=== PATIENT | male | born 1975 | race Caucasian/White ===

== ENCOUNTER 2020-05-08 10:00 | Outpatient (CLI) | payer OTHER, SELFPAY ==
--- NOTE | ~2020-05-08 | XR_ITS ---
XR lumbar spine 2-3V DATE: 05/08/2020 10:42 INDICATION: Left-sided low back pain. No injury. TECHNIQUE: AP, lateral, coned lateral lumbosacral views COMPARISON: None FINDINGS: There is suggestion of bilateral L5 pars interarticularis defects with associated grade 1 a nterolisthesis at L5-S1. There is mild to moderate anterior wedging and loss of height of L1 which appears chronic, most consi stent with old healed anterior wedge compression fracture. No recent fracture or bone destruction is evident. The lumbar pedicles appear intact. Lumbar and lumb osacral interspaces appear well preserved. The sacroiliac joints are normal. Incidentally noted is a prominent amount of fecal material in the colon suggesting constipation. 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 IMPRESSION: Bilateral L5 spondylolysis is strongly suggested, with associated g rade 1 anterolisthesis at L5-S1 Mild to moderate old anterior wedge compression fracture deformity of L1
[2020-05-08 10:47] LABS: Hematocrit 45.5 % (42.0-52.0); Hemoglobin 15.9 g/dL (14.0-18.0); Mean Corpuscular HGB Conc 34.9 g/dl (32-36); Mean Corpuscular Hemoglobin 31.2 pg (26-34); Mean Corpuscular Volume 89.4 fl (80-100); Mean Platelet Volume 9.4 fl (7.4-10.4); Platelet Count Result 212 k/mm3 (150-375); Red Blood Count 5.09 M/mm3 (4.6-6.20); Red Cell Distribution Width 12.9 % (11.5-14.5); White Blood Count 7.3 K/mm3 (4.5-10.0)
[2020-05-08 10:56] LABS: Blood Urea Nitrogen 12 mg/dL (9-20); Calcium 9.4 mg/dL (8.4-10.2); Carbon Dioxide 25 mmol/L (22-30); Chloride 108 mmol/L (98-107); Estimated Glomerular Filt Rate > 60; Glucose 124 mg/dL (75-110); Potassium 4.8 mmol/L (3.4-5.0); Sodium 139 mmol/L (137-145)
== END 2020-05-08 10:01 | disposition home or self-care (01) ==
PROVIDERS: PCP Family Medicine; Visit Provider Nurse Practitioner Family
DX: M47.896 Other spondylosis, lumbar region (principal); R10.9 Unspecified abdominal pain
CPT/HCPCS: 36415; 72100; 80048; 85027

== ENCOUNTER 2023-01-31 08:00 | Outpatient (CLI) | payer OTHER, SELFPAY ==
[2023-01-31 08:23] LABS: Anion Gap 5 mmol/L (8-16); Blood Urea Nitrogen 12 mg/dL (9-20); Calcium 8.8 mg/dL (8.4-10.2); Carbon Dioxide 29 mmol/L (22-30); Chloride 104 mmol/L (98-107); Cholesterol 166 mg/dL (0-200); Estimated Glomerular Filt Rate > 60; Glucose 117 mg/dL (65-110); HDL Direct 41 mg/dL; Potassium 4.1 mmol/L (3.4-5.0); Sodium 138 mmol/L (137-145); Triglycerides 119 mg/dL (<150)
[2023-01-31 08:34] LABS: LDL Cholesterol Direct 91 mg/dL
[2023-01-31 08:54] LABS: Prostate Specific Antigen 0.7 ng/mL (< OR = 4.0)
== END 2023-01-31 08:01 | disposition home or self-care (01) ==
LOC: ANHLAB 08:02
PROVIDERS: PCP Nurse Practitioner Family; Visit Provider Nurse Practitioner Family
DX: R73.03 Prediabetes (principal); Z13.220 Encounter for screening for lipoid disorders; Z13.29 Encounter for screening for other suspected endocrine disorder; Z12.5 Encounter for screening for malignant neoplasm of prostate
CPT/HCPCS: 36415; 80048; 80061; 84153; 84443

== ENCOUNTER 2023-02-03 06:25 | Day surgery (SDC) | payer OTHER, SELFPAY ==
[2023-01-23 09:02] VITALS: BMI 34.2
[2023-01-28 08:59] VITALS: BMI 36.3
--- NOTE | 2023-02-03 06:45 | PM.HPGS ---
History of Present Illness History of Present Illness Consent: Risks, benefits, and alternatives have been discussed and questions answered. Patient agrees to proceed with procedure. Chief complaint: Family Hx Malignant Neoplasm of digestive organs Narrative: Edgard Armendariz is a 47 year old male referred because of a family history of colon cancer. His last colonoscopy, 8 years ago revealed 3 small polyps that were hyperplastic. Review of Systems Review of Systems: All systems reviewed & are unremarkable except as noted in HPI and below PMFSH Past Medical History Medical History Bipolar affective disorder BMI 34.0-34.9,adult Tobacco use Family History Family History Father Family history of malignant neoplasm Grandparent Diabetes mellitus Mother Thyroid disorder Arthritis Social History Social History Years smoked: 30 Smoking status: Current every day smoker Tobacco type: cigarettes Alcohol intake: never Substance use: current Substance use type: marijuana Other substance usage details: occassional Lack of Transportation: No Lack of Food: Never True Current Housing: I Have Housing Concerned About Future Housing: No Difficulty Paying Gas/Electric Bills: No Difficulty Paying for Meds: No Currently Unemployed: No Education: Grade School Difficulty w/ Childcare or Family Care: No Living arrangements: with family Spiritual care concerns: No Meds Home Medications and Allergies Home Medications Medication Instructions Recorded Confirmed Type benztropine 0.5 mg tablet 0.5 mg PO BID 05/08/20 01/28/23 History mirtazapine 30 mg tablet 30 mg PO DAILY 05/08/20 01/28/23 History quetiapine 400 mg tablet (Seroquel) 400 mg PO BID 05/08/20 01/28/23 History risperidone 2 mg tablet 2 mg PO BID 05/08/20 01/28/23 History fluvoxamine 100 mg tablet 100 mg PO DAILY 01/28/23 01/28/23 History Allergies Allergy/AdvReac Type Severity Reaction Status Date / Time hydrocodone Allergy Unknown Unknown Verified 02/03/23 06:47 risperidone Allergy Unknown Unknown Verified 02/03/23 06:47 codeine AdvReac Severe FEELS LIKE Verified 02/03/23 06:47 SPEED Exam Resp: Auscultation: clear to auscultation bilaterally Cardio: Rate: regular rate Rhythm: regular rhythm GI: GI Palp: Yes Soft to palpation and No Tenderness to palpation present (GI) Assessment and Plan Assessment and plan (1) Screen for colon cancer: Code(s): Z12.11 - Encounter for screening for malignant neoplasm of colon Status: Acute Assessment and Plan: Colonoscopy with possible biopsy or polypectomy or cautery or injection of substances.
--- NOTE | 2023-02-03 06:53 | P.PNAN_ITS ---
Anes - Initial Pre Proc Eval Procedure: Operation Date: 02/03/23 08:00 Proposed Procedures p Diagnostic Colonoscopy - Darwin Chakraborty MD Date/Time: 02/03/23 06:53 Surgeon: Darwin Chakraborty MD Pre Op Diagnosis: Family Hx Malignant Neoplasm of digestive organs Patient Data Age: 47 Gender: M Height: 1.8 m Weight: 109.8 kg Allergies Allergy/AdvReac Type Severity Reaction Status Date / Time hydrocodone Allergy Unknown Unknown Verified 02/03/23 06:47 risperidone Allergy Unknown Unknown Verified 02/03/23 06:47 codeine AdvReac Severe FEELS LIKE Verified 02/03/23 06:47 SPEED Home Medications Medication Instructions Recorded Confirmed Type benztropine 0.5 mg tablet 0.5 mg PO BID 05/08/20 02/03/23 History mirtazapine 30 mg tablet 30 mg PO DAILY 05/08/20 02/03/23 History quetiapine 400 mg tablet (Seroquel) 400 mg PO BID 05/08/20 02/03/23 History risperidone 2 mg tablet 2 mg PO BID 05/08/20 02/03/23 History fluvoxamine 100 mg tablet 100 mg PO DAILY 01/28/23 02/03/23 History Patient hx anesthesia problems: none Family hx anesthesia problems: none Results Review: All pre-operative results and documents have been reviewed as part of the pre- operative evaluation. [facility] Past Medical History Medical History Bipolar affective disorder BMI 34.0-34.9,adult Tobacco use Family History Family History (Updated 01/06/23 @ 09:58 by Celeste Collins MA) Father Family history of malignant neoplasm Grandparent Diabetes mellitus Mother Thyroid disorder Arthritis Social History Social History (Updated 01/06/23 @ 10:00 by Celeste Collins MA) Years smoked: 30 Smoking status: Current every day smoker Tobacco type: cigarettes Alcohol intake: never Substance use: current Substance use type: marijuana Other substance usage details: occassional Lack of Transportation: No Lack of Food: Never True Current Housing: I Have Housing Concerned About Future Housing: No Difficulty Paying Gas/Electric Bills: No Difficulty Paying for Meds: No Currently Unemployed: No Education: Grade School Difficulty w/ Childcare or Family Care: No Living arrangements: with family Spiritual care concerns: No Anes - Eval Final PreProcedure Day of Procedure 04/10/23 06:53 Patient weight: obese Heart: regular rate and rhythm Lungs: clear to auscultation and normal air movement Airway: Mallampati scale class II Neurological: alert and oriented Last oral intake: >/= 8 hours ASA classification: III Emergent: no Anesthetic plan: proceed Anesthesia type and monitoring: general GIVS Results Review: All pre-operative results and documents have been reviewed as part of the pre- operative evaluation. Informed Consent: The patient's anesthetic plan and its attendant risks and benefits were discussed with the patient/family/POA. Questions were solicited and answers provided to the satisfaction of the patient/family/POA.
[2023-02-03 07:07] VITALS: BP 121/77; PULSE 88; RESP 18; TEMP 36.6; O2SAT 96
[2023-02-03] MEDS: LACTATED RINGERS 1,000 ML 150 ML IV CONT (07:07)
[2023-02-03 08:20] VITALS: BP 105/62; PULSE 56; RESP 16; O2SAT 96
[2023-02-03 08:30] VITALS: BP 106/74; PULSE 63; RESP 16; O2SAT 97
[2023-02-03 08:40] VITALS: BP 108/64; PULSE 58; RESP 18; O2SAT 98
--- NOTE | 2023-02-03 08:46 | SUR.PHASEII ---
0825; PT AWAKE AND ALERT. DRINKING SODA. DENIES PAIN OR NAUSEA. MOTHER AT BEDSIDE
--- NOTE | 2023-02-03 12:07 | WPDANESPN ---
Anes - Prog Note Post-Op Date/Time: 02/03/23 12:07 Cardiovascular status: normal Respiratory status: normal Airway patency: baseline Mental status: baseline Post-Op hydration status: normal Vital Signs: Last Vital Signs Temp 36.6 C 02/03/23 07:07 Pulse 58 L 02/03/23 08:40 Resp 18 02/03/23 08:40 BP 108/64 02/03/23 08:40 Pulse Ox 98 02/03/23 08:40 O2 Del Method Room Air 02/03/23 08:40 Pain Score (VAS): 0 I/O: Intake & Output 02/02/23 02/03/23 02/03/23 23:59 07:59 15:59 Intake Total 250 Balance 250 Post-procedural complaints: none Patient Feedback: Patient satisfied with anesthetic care.
== END 2023-02-03 08:49 | disposition home or self-care (01) ==
PROVIDERS: PCP Nurse Practitioner Family; Visit Provider Internal Medicine Gastroenterology
PROC: 0DJD8ZZ Inspection of Lower Intestinal Tract, Via Natural or Artificial Opening Endoscopic (ICD-10-PCS; CPT 45378; principal; 2023-02-03 08:00)
DX: Z12.11 Encounter for screening for malignant neoplasm of colon (principal)
CPT/HCPCS: 45378

== ENCOUNTER 2023-04-28 11:28 | Day surgery (SDC) | payer OTHER, SELFPAY ==
[2023-04-18 10:25] VITALS: BMI 33.8
[2023-04-18 11:38] VITALS: BMI 33.5
--- NOTE | 2023-04-25 16:27 | PM.HPGS ---
History of Present Illness History of Present Illness Consent: Risks, benefits, and alternatives have been discussed and questions answered. Patient agrees to proceed with procedure. Chief complaint: Positive Cologuard Narrative: Edgard Armendariz is a 48 year old male referred for colonoscopy due to a positive Cologuard test. Attempted colonoscopy earlier this year could not be done because of incomplete prep. His father had colon cancer. Review of Systems Review of Systems: All systems reviewed & are unremarkable except as noted in HPI and below PMFSH Past Medical History Medical History Bipolar affective disorder BMI 34.0-34.9,adult Tobacco use Family History Family History Father Family history of malignant neoplasm Grandparent Diabetes mellitus Mother Thyroid disorder Arthritis Social History Social History Smoking packs per day: 1 Smoking cigarettes per day: 20.0 Years smoked: 30 Smoking pack-years: 30.00 Smoking status: Current every day smoker Tobacco type: cigarettes Alcohol intake: never Substance use: current Substance use type: marijuana Other substance usage details: WEEKLY Lack of Transportation: No Lack of Food: Never True Current Housing: I Have Housing Concerned About Future Housing: No Difficulty Paying Gas/Electric Bills: No Difficulty Paying for Meds: No Currently Unemployed: No Education: Grade School Difficulty w/ Childcare or Family Care: No Living arrangements: alone Spiritual care concerns: No Meds Home Medications and Allergies Home Medications Medication Instructions Recorded Confirmed Type benztropine 0.5 mg tablet 0.5 mg PO BID 05/08/20 04/28/23 History mirtazapine 30 mg tablet 30 mg PO DAILY 05/08/20 04/28/23 History quetiapine 400 mg tablet (Seroquel) 400 mg PO BID 05/08/20 04/28/23 History risperidone 2 mg tablet 2 mg PO BID 05/08/20 04/28/23 History fluvoxamine 100 mg tablet 100 mg PO DAILY 01/28/23 04/28/23 History Allergies Allergy/AdvReac Type Severity Reaction Status Date / Time codeine AdvReac Intermediate Hyperactive Verified 04/28/23 11:55 hydrocodone AdvReac Intermediate Hyperactive Verified 04/28/23 11:55 Exam Const: General: alert Nutritional Appearance: overweight Orientation/consciousness: patient oriented x3 Resp: Auscultation: clear to auscultation bilaterally Cardio: Rhythm: regular rhythm GI: GI Palp: Yes Soft to palpation and No Tenderness to palpation present (GI) Neuro: General: patient oriented x3 Assessment and Plan Assessment and plan (1) Screen for colon cancer: Code(s): Z12.11 - Encounter for screening for malignant neoplasm of colon Status: Acute Assessment and Plan: Colonoscopy with possible biopsy or polypectomy or cautery or injection of substances.
--- NOTE | 2023-04-28 10:55 | WPDANESEPPF ---
Anes - Initial Pre Proc Eval Procedure: Operation Date: 04/28/23 13:00 Proposed Procedures p Diagnostic Colonoscopy - Darwin Chakraborty MD Date/Time: 04/28/23 10:55 Surgeon: Darwin Chakraborty MD Pre Op Diagnosis: Positive Cologuard Patient Data Age: 48 Gender: M Height: 1.8 m Weight: 109 kg Allergies Allergy/AdvReac Type Severity Reaction Status Date / Time codeine AdvReac Intermediate Hyperactive Verified 04/28/23 11:55 hydrocodone AdvReac Intermediate Hyperactive Verified 04/28/23 11:55 Home Medications Medication Instructions Recorded Confirmed Type benztropine 0.5 mg tablet 0.5 mg PO BID 05/08/20 04/28/23 History mirtazapine 30 mg tablet 30 mg PO DAILY 05/08/20 04/28/23 History quetiapine 400 mg tablet (Seroquel) 400 mg PO BID 05/08/20 04/28/23 History risperidone 2 mg tablet 2 mg PO BID 05/08/20 04/28/23 History fluvoxamine 100 mg tablet 100 mg PO DAILY 01/28/23 04/28/23 History Patient hx anesthesia problems: none Family hx anesthesia problems: none Results Review: All pre-operative results and documents have been reviewed as part of the pre-operative evaluation. [facility] Past Medical History Medical History Bipolar affective disorder BMI 34.0-34.9,adult Tobacco use Family History Family History Father Family history of malignant neoplasm Grandparent Diabetes mellitus Mother Thyroid disorder Arthritis Social History Social History Smoking packs per day: 1 Smoking cigarettes per day: 20.0 Years smoked: 30 Smoking pack-years: 30.00 Smoking status: Current every day smoker Tobacco type: cigarettes Alcohol intake: never Substance use: current Substance use type: marijuana Other substance usage details: WEEKLY Lack of Transportation: No Lack of Food: Never True Current Housing: I Have Housing Concerned About Future Housing: No Difficulty Paying Gas/Electric Bills: No Difficulty Paying for Meds: No Currently Unemployed: No Education: Grade School Difficulty w/ Childcare or Family Care: No Living arrangements: alone Spiritual care concerns: No Anes - Eval Final PreProcedure Day of Procedure 04/28/23 10:55 Patient weight: obese Heart: regular rate and rhythm Lungs: clear to auscultation and normal air movement Airway: Mallampati scale class II Neurological: alert and oriented Last oral intake: >/= 8 hours ASA classification: III Emergent: no Anesthetic plan: proceed Anesthesia type and monitoring: general GIVS Results Review: All pre-operative results and documents have been reviewed as part of the pre-operative evaluation. Informed Consent: The patient's anesthetic plan and its attendant risks and benefits were discussed with the patient/family/POA. Questions were solicited and answers provided to the satisfaction of the patient/family/POA.
[2023-04-28 11:51] VITALS: BP 118/70; PULSE 94; RESP 20; TEMP 36.8; O2SAT 96
[2023-04-28] MEDS: LACTATED RINGERS 1,000 ML 150 ML IV CONT (12:06)
[2023-04-28 13:32] VITALS: BP 96/66; PULSE 66; RESP 20; O2SAT 95
[2023-04-28 13:42] VITALS: BP 111/59; PULSE 71; RESP 20; O2SAT 99
[2023-04-28 13:52] VITALS: BP 132/72; PULSE 72; RESP 18; O2SAT 99
[2023-04-28 13:53] VITALS: BP 114/77; PULSE 72; RESP 18; O2SAT 99
--- NOTE | 2023-04-28 14:47 | WPDANESPN ---
Anes - Prog Note Post-Op Date/Time: 04/28/23 14:47 Cardiovascular status: normal Respiratory status: normal Airway patency: baseline Mental status: baseline Post-Op hydration status: normal Vital Signs: Last Vital Signs Temp 36.8 C 04/28/23 11:51 Pulse 72 04/28/23 13:53 Resp 18 04/28/23 13:53 BP 114/77 04/28/23 13:53 Pulse Ox 99 04/28/23 13:53 O2 Del Method Room Air 04/28/23 13:53 Pain Score (VAS): 0 I/O: Intake & Output 04/27/23 04/28/23 04/28/23 23:59 07:59 15:59 Intake Total 850 Balance 850 Post-procedural complaints: none Patient Feedback: Patient satisfied with anesthetic care.
== END 2023-04-28 14:13 | disposition home or self-care (01) ==
PROVIDERS: PCP Family Medicine; Visit Provider Internal Medicine Gastroenterology
PROC: 0DJD8ZZ Inspection of Lower Intestinal Tract, Via Natural or Artificial Opening Endoscopic (ICD-10-PCS; CPT 45378; principal; 2023-04-28 13:00)
DX: Z12.11 Encounter for screening for malignant neoplasm of colon (principal)
CPT/HCPCS: 45378